=== PATIENT | male | born 1945 | race Caucasian/White ===

== ENCOUNTER 2019-03-07 16:22 | Outpatient (REF) | payer MEDICARE, SELFPAY ==
[2019-03-07 19:29] LABS: ALT 41 U/L (16-63); Anion Gap 11.6 mmol/L (3-11); BUN 20 mg/dL (7-18); CO2 27.4 mmol/L (21.0-32.0); CREATININE 1.04 mg/dL (0.70-1.30); Calcium 8.9 mg/dL (8.5-10.1); Chloride 105 mmol/L (98-107); Glucose 158 mg/dL (74-106); LDL CHOLESTEROL 89 mg/dL (<100); Potassium 3.7 mmol/L (3.5-5.1); Sodium 144 mmol/L (136-145)
== END 2019-03-07 16:42 ==
LOC: NCHCN 16:22
PROVIDERS: PCP Internal Medicine; Visit Provider Internal Medicine
DX: I10 Essential (primary) hypertension (principal); N40.0 Benign prostatic hyperplasia without lower urinary tract symptoms; E66.3 Overweight
CPT/HCPCS: 80048; 83721; 84460

== ENCOUNTER 2019-03-29 08:55 | Outpatient (REF) | payer MEDICARE, SELFPAY ==
[2019-03-29 19:04] LABS: Glucose 110 mg/dL (74-106)
[2019-03-29 19:18] LABS: Hemoglobin A1C 5.1 % (3.8-5.6)
== END 2019-03-29 09:15 ==
LOC: NCHCN 08:55
PROVIDERS: PCP Internal Medicine; Visit Provider Internal Medicine
DX: R73.9 Hyperglycemia, unspecified (principal)
CPT/HCPCS: 82947; 83036

== ENCOUNTER 2020-04-16 16:35 | Outpatient (REF) | payer OTHER, SELFPAY ==
[2020-04-16 19:08] LABS: ALT 34 U/L (16-63); Anion Gap 6.1 mmol/L (3-11); BUN 21 mg/dL (7-18); CO2 28.9 mmol/L (21.0-32.0); Calcium 8.9 mg/dL (8.5-10.1); Chloride 105 mmol/L (98-107); Glucose 134 mg/dL (74-106); LDL CHOLESTEROL 86 mg/dL (<100); Potassium 3.8 mmol/L (3.5-5.1); Sodium 140 mmol/L (136-145)
== END 2020-04-16 16:36 | disposition home or self-care (01) ==
LOC: NCHCN 16:35
PROVIDERS: PCP Internal Medicine; Visit Provider Internal Medicine
DX: I10 Essential (primary) hypertension (principal); E78.5 Hyperlipidemia, unspecified
CPT/HCPCS: 80048; 83721; 84460

== ENCOUNTER 2020-12-27 16:23 | Outpatient (REF) | payer MEDICARE, SELFPAY ==
[2020-12-29 14:16] LABS: COVID-19 RT-PCR UVMMC Result Positive (Negative)
== END 2020-12-27 16:24 | disposition home or self-care (01) ==
LOC: NCHCN 16:23
PROVIDERS: PCP Internal Medicine; Visit Provider Internal Medicine
DX: Z20.822 Contact with and (suspected) exposure to COVID-19 (principal); J06.9 Acute upper respiratory infection, unspecified
CPT/HCPCS: U0003

== ENCOUNTER 2021-10-16 17:12 | Outpatient (REF) | payer MEDICARE, SELFPAY ==
[2021-10-16 21:05] LABS: HCT 33.8 % (40.0-50.0); HGB 11.3 g/dL (13.5-17.5); MCH 28.1 pg (27.0-33.0); MCHC 33.4 % (32.0-36.0); MCV 84 fL (80-95); MPV 10.8 fL (8.0-11.0); Platelet Count 202 10^3/uL (130-400); RBC 4.02 10^6/uL (4.36-5.78); RDW 16.7 % (11.8-14.1); RDW-SD 50.9 fL; WBC 5.81 10^3/uL (4.4-10.8)
[2021-10-16 21:24] LABS: Anion Gap 7.2 mmol/L (3-11); BUN 16 mg/dL (7-18); CO2 27.8 mmol/L (21.0-32.0); CREATININE 0.9 mg/dL (0.70-1.30); Calcium 8.6 mg/dL (8.5-10.1); Calculated LDL 72 mg/dL (<100); Chloride 106 mmol/L (98-107); Cholesterol 147 mg/dL (<200); Glucose 116 mg/dL (74-106); HDL Cholesterol 38 mg/dL (40-60); Potassium 4.1 mmol/L (3.5-5.1); Sodium 141 mmol/L (136-145); TSH 3.03 uIU/mL (0.36-3.74); Triglyceride 187 mg/dL (<150)
== END 2021-10-16 17:13 | disposition home or self-care (01) ==
LOC: NCHCN 17:12
PROVIDERS: PCP Internal Medicine; Visit Provider Internal Medicine
DX: I10 Essential (primary) hypertension (principal); R53.83 Other fatigue; E78.5 Hyperlipidemia, unspecified
CPT/HCPCS: 80048; 80061; 85027; 84443

== ENCOUNTER 2021-10-18 17:56 | Outpatient (REF) | payer MEDICARE, SELFPAY ==
[2021-10-18 19:54] LABS: Iron 105 ug/dL (65-175); Total Iron Binding Capacity 242 ug/dL (250-450); Transferrin Sat 43 % (20-55)
[2021-10-18 20:26] LABS: Ferritin 516 ng/mL (26-388); Folate 16.1 ng/mL (8.6-20.0); Vitamin B12 559 pg/mL (193-986)
== END 2021-10-18 17:57 | disposition home or self-care (01) ==
LOC: NCHCN 17:56
PROVIDERS: PCP Internal Medicine; Visit Provider Internal Medicine
DX: D64.9 Anemia, unspecified (principal)
CPT/HCPCS: 82607; 82728; 82746; 83540; 83550; 85045

== ENCOUNTER 2021-12-24 16:29 | Outpatient (REF) | payer MEDICARE, SELFPAY ==
[2021-12-24 18:34] LABS: Reticulocyte 2.7 % (0.5-2.4)
[2021-12-24 22:05] LABS: Ferritin 525 ng/mL (26-388); Folate 14.5 ng/mL (8.6-20.0); Iron 55 ug/dL (65-175); Vitamin B12 522 pg/mL (193-986)
[2021-12-25 13:12] LABS: HCT 31.4 % (40.0-50.0); HGB 9.9 g/dL (13.5-17.5); MCH 28.4 pg (27.0-33.0); MCHC 31.5 % (32.0-36.0); MCV 90 fL (80-95); MPV 12.6 fL (8.0-11.0); Platelet Count 164 10^3/uL (130-400); RBC 3.49 10^6/uL (4.36-5.78); RDW 17.6 % (11.8-14.1); RDW-SD 57.4 fL; WBC 4.71 10^3/uL (4.4-10.8)
== END 2021-12-24 16:30 | disposition home or self-care (01) ==
LOC: NCHCN 16:29
PROVIDERS: PCP Internal Medicine; Visit Provider Internal Medicine
DX: D64.9 Anemia, unspecified (principal)
CPT/HCPCS: 85027; 82607; 82728; 82746; 83540; 85045

== ENCOUNTER 2021-12-27 15:13 | Outpatient (REF) | payer MEDICARE, SELFPAY ==
[2021-12-27 19:01] LABS: ESR 21 mm/hr (0-20)
[2021-12-27 19:10] LABS: C-Reactive Protein 3.14 mg/dL (0.0-0.3)
== END 2021-12-27 15:14 | disposition home or self-care (01) ==
LOC: NCHCN 15:13
PROVIDERS: PCP Internal Medicine; Visit Provider Internal Medicine
DX: D64.9 Anemia, unspecified (principal); M79.18 Myalgia, other site
CPT/HCPCS: 85652; 86140

== ENCOUNTER 2022-02-20 15:23 | Outpatient (REF) | payer MEDICARE, SELFPAY ==
[2022-02-20 20:37] LABS: HCT 29.6 % (40.0-50.0); HGB 9.3 g/dL (13.5-17.5); MCH 27.2 pg (27.0-33.0); MCHC 31.4 % (32.0-36.0); MCV 87 fL (80-95); MPV 10.3 fL (8.0-11.0); Platelet Count 125 10^3/uL (130-400); RBC 3.42 10^6/uL (4.36-5.78); RDW 18.5 % (11.8-14.1); RDW-SD 57.9 fL; WBC 6.33 10^3/uL (4.4-10.8)
[2022-02-20 20:47] LABS: C-Reactive Protein 2.36 mg/dL (0.0-0.3)
[2022-02-20 21:33] LABS: Absolute Basophil Count 0.13 10^3/uL (0.0-0.2); Absolute Lymphocyte Count 0.38 10^3/uL (1.2-3.4); Absolute Monocyte Count 0.44 10^3/uL (0.1-0.8); Absolute Neutrophil Count 5.25 10^3/uL (1.2-6.7); Atypical Lymphocytes % 2; Bands % 1; Metamyelocytes % 2
[2022-02-20 21:34] LABS: Diff Comment Manual Differential; Ovalocytes 2+; Tear Drop Cells 2+
== END 2022-02-20 15:24 | disposition home or self-care (01) ==
LOC: NCHCN 15:23
PROVIDERS: PCP Internal Medicine; Visit Provider Internal Medicine
DX: M35.3 Polymyalgia rheumatica (principal)
CPT/HCPCS: 85025; 86140

== ENCOUNTER → 2022-04-25 13:21 | Outpatient (BNVA) | payer MEDICARE, SELFPAY | PROVIDERS: PCP Internal Medicine; Referring Provider Internal Medicine; Visit Provider Surgery | DX: D50.9 Iron deficiency anemia, unspecified (principal); K58.9 Irritable bowel syndrome, unspecified; I10 Essential (primary) hypertension; M35.3 Polymyalgia rheumatica; R53.83 Other fatigue | CPT/HCPCS: 99202; 99203 ==

== ENCOUNTER 2022-06-25 14:12 | Outpatient (REF) | payer MEDICARE, SELFPAY ==
[2022-06-25 21:11] LABS: ESR 21 mm/hr (0-20)
[2022-06-25 21:13] LABS: HCT 30.2 % (40.0-50.0); HGB 9.7 g/dL (13.5-17.5); MCH 27.1 pg (27.0-33.0); MCHC 32.1 % (32.0-36.0); MCV 84 fL (80-95); Platelet Count 121 10^3/uL (130-400); RBC 3.58 10^6/uL (4.36-5.78); RDW-SD 56.5 fL; Reticulocyte 3.1 % (0.5-2.4); WBC 6.24 10^3/uL (4.4-10.8)
[2022-06-25 21:53] LABS: Iron 53 ug/dL (65-175); Total Iron Binding Capacity 216 ug/dL (250-450); Transferrin Sat 25 % (20-55)
[2022-06-25 22:03] LABS: Ferritin 515 ng/mL (26-388)
[2022-06-25 22:15] LABS: RDW 18.5 % (11.8-14.1)
== END 2022-06-25 14:13 | disposition home or self-care (01) ==
LOC: NCHCN 14:12
PROVIDERS: PCP Internal Medicine; Visit Provider Internal Medicine
DX: D64.9 Anemia, unspecified (principal); M35.3 Polymyalgia rheumatica
CPT/HCPCS: 85027; 85652; 82728; 83540; 83550; 85045; 86140

== ENCOUNTER 2022-11-04 13:54 | Outpatient (REF) | payer MEDICARE, SELFPAY ==
[2022-11-04 19:07] LABS: HCT 29.3 % (40.0-50.0); HGB 9.5 g/dL (13.5-17.5); MCH 26.7 pg (27.0-33.0); MCHC 32.4 % (32.0-36.0); MCV 82 fL (80-95); RBC 3.56 10^6/uL (4.36-5.78); RDW 19.3 % (11.8-14.1); RDW-SD 58.1 fL; WBC 5.47 10^3/uL (4.4-10.8)
[2022-11-04 19:43] LABS: ESR 13 mm/hr (0-20)
[2022-11-04 19:48] LABS: Iron 110 ug/dL (65-175); Total Iron Binding Capacity 233 ug/dL (250-450); Transferrin Sat 47 % (20-55)
[2022-11-04 20:18] LABS: Absolute Eosinophil Count 0.05 10^3/uL (0.0-0.7); Absolute Lymphocyte Count 0.98 10^3/uL (1.2-3.4); Absolute Monocyte Count 0.44 10^3/uL (0.1-0.8); Absolute Neutrophil Count 3.61 10^3/uL (1.2-6.7); Bands % 6; Metamyelocytes % 3; Platelet Count 77 10^3/uL (130-400)
[2022-11-04 20:19] LABS: Anisocytosis 2+; Diff Comment Manual Differential; Myelocytes % 4; Poikilocytes 2+
[2022-11-05 12:22] LABS: Reticulocyte 2.7 % (0.5-2.4)
== END 2022-11-04 13:55 | disposition home or self-care (01) ==
LOC: NCHCN 13:54
PROVIDERS: Internal Medicine Hematology & Oncology; PCP Internal Medicine; Visit Provider Internal Medicine
DX: D64.9 Anemia, unspecified (principal); N40.0 Benign prostatic hyperplasia without lower urinary tract symptoms
CPT/HCPCS: 85652; 83540; 83550; 85025; 85045

== ENCOUNTER 2023-03-27 15:07 | Outpatient (CLI) | payer MEDICARE, SELFPAY ==
[2023-03-27 12:09] LABS: Abs Immature Grans 0.34 10^3/uL (0.0-0.06); HCT 28.2 % (40.0-50.0); HGB 9.1 g/dL (13.5-17.5); MCH 25.6 pg (27.0-33.0); MCHC 32.3 % (32.0-36.0); MCV 79 fL (80-95); RBC 3.56 10^6/uL (4.36-5.78); RDW 19.1 % (11.8-14.1); RDW-SD 54.9 fL; WBC 4.18 10^3/uL (4.4-10.8)
[2023-03-27 12:24] LABS: ALT 28 U/L (16-63); AST 20 U/L (15-37); Albumin 3.3 g/dL (3.4-5.0); Alkaline Phosphatase 110 U/L (46-116); Anion Gap 8.4 mmol/L (3-11); BUN 22 mg/dL (7-18); Bilirubin, Total 0.5 mg/dL (0.2-1.0); CO2 26.6 mmol/L (21.0-32.0); CREATININE 1.1 mg/dL (0.70-1.30); Calcium 8.6 mg/dL (8.5-10.1); Chloride 107 mmol/L (98-107); Estimated GFR 68.29 (mL/min/1.73m2); Glucose 102 mg/dL (74-106); Potassium 4.6 mmol/L (3.5-5.1); Sodium 142 mmol/L (136-145); Total Protein 7.5 g/dL (6.4-8.2)
[2023-03-27 12:29] LABS: Bands % 4; Platelet Count 95 10^3/uL (130-400)
[2023-03-27 12:30] LABS: Absolute Lymphocyte Count 1.21 10^3/uL (1.2-3.4); Absolute Monocyte Count 0.25 10^3/uL (0.1-0.8); Absolute Neutrophil Count 2.63 10^3/uL (1.2-6.7); Atypical Lymphocytes % 6; Diff Comment Manual Differential; Myelocytes % 2; RBC Morphology Normal
== END 2023-03-27 15:08 | disposition home or self-care (01) ==
LOC: LBO 15:07
PROVIDERS: PCP Internal Medicine; Visit Provider Nurse Practitioner Adult Health
DX: D75.81 Myelofibrosis (principal)
CPT/HCPCS: 36415; 80053; 85025

== ENCOUNTER 2023-05-07 18:33 | Outpatient (REF) | payer MEDICARE, SELFPAY ==
[2023-05-07 18:49] LABS: Abs Immature Grans 0.43 10^3/uL (0.0-0.06); HCT 26.4 % (40.0-50.0); HGB 8.5 g/dL (13.5-17.5); MCH 25.8 pg (27.0-33.0); MCHC 32.2 % (32.0-36.0); MCV 80 fL (80-95); RBC 3.29 10^6/uL (4.36-5.78); RDW 20.8 % (11.8-14.1); RDW-SD 61.3 fL; WBC 4.91 10^3/uL (4.4-10.8)
[2023-05-07 19:19] LABS: Absolute Lymphocyte Count 1.28 10^3/uL (1.2-3.4); Absolute Monocyte Count 0.59 10^3/uL (0.1-0.8); Absolute Neutrophil Count 2.46 10^3/uL (1.2-6.7); Metamyelocytes % 6; Myelocytes % 4; Platelet Count 56 10^3/uL (130-400)
[2023-05-07 19:20] LABS: Anisocytosis 2+; Diff Comment Manual Differential
[2023-05-07 19:21] LABS: Poikilocytes 2+; Polychromasia Present
[2023-05-08 19:04] LABS: PSA, Diagnostic 3.9 ng/mL (<=6.5)
== END 2023-05-07 18:34 | disposition home or self-care (01) ==
LOC: NCHCN 18:33
PROVIDERS: Internal Medicine Hematology & Oncology; PCP Internal Medicine; Visit Provider Internal Medicine
DX: D75.81 Myelofibrosis (principal); N40.1 Benign prostatic hyperplasia with lower urinary tract symptoms
CPT/HCPCS: 84153; 85025

== ENCOUNTER 2023-06-04 11:35 | Outpatient (CLI) | payer MEDICARE, SELFPAY ==
[2023-06-04 11:17] LABS: HCT 26.7 % (40.0-50.0); HGB 8.5 g/dL (13.5-17.5); MCH 26.2 pg (27.0-33.0); MCHC 31.8 % (32.0-36.0); MCV 82 fL (80-95); RBC 3.24 10^6/uL (4.36-5.78); RDW 22.1 % (11.8-14.1); WBC 5.14 10^3/uL (4.4-10.8)
[2023-06-04 11:44] LABS: Absolute Basophil Count 0.05 10^3/uL (0.0-0.2); Absolute Lymphocyte Count 1.64 10^3/uL (1.2-3.4); Absolute Monocyte Count 0.51 10^3/uL (0.1-0.8); Absolute Neutrophil Count 2.93 10^3/uL (1.2-6.7); Anisocytosis 2+; Atypical Lymphocytes % 1; Bands % 5; Diff Comment Manual Differential; Platelet Count 75 10^3/uL (130-400)
[2023-06-04 11:45] LABS: Poikilocytes 2+
== END 2023-06-04 11:36 | disposition home or self-care (01) ==
LOC: LBO 11:36
PROVIDERS: PCP Internal Medicine; Visit Provider Internal Medicine Hematology & Oncology
DX: D75.81 Myelofibrosis (principal); R71.8 Other abnormality of red blood cells
CPT/HCPCS: 36415; 85025

== ENCOUNTER → 2023-07-06 08:50 | Outpatient (BNVA) | payer MEDICARE, SELFPAY | PROVIDERS: PCP Internal Medicine; Referring Provider Internal Medicine; Visit Provider Nurse Practitioner Gerontology | DX: N40.1 Benign prostatic hyperplasia with lower urinary tract symptoms (principal); N13.8 Other obstructive and reflux uropathy; R33.8 Other retention of urine | CPT/HCPCS: 51798; 81003; 99215 ==

== ENCOUNTER → 2023-07-08 03:22 | Outpatient (CLI) | payer MEDICARE, SELFPAY ==
--- NOTE | 2023-07-08 | DI.CT_ITS ---
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 TECHNIQUE: Imaging Protocol: Axial computed tomography images with coronal and sagittal reformatted images were created and reviewed CONTRAST MATERIAL: Intravenous: Omnipaque 350 Contrast volume:100 ml Oral: yes / COMPARISON: No exams were available for comparison FINDINGS: CHEST: Tracheobronchial tree: Patent. Pulmonary parenchyma: No consolidation or dominant measurable mass. Granuloma left upper lobe. Mild nonspecific opacities medial left lung apex. Pleura: No effusion or pneumothorax. Lymph nodes: Within normal limits. Aorta: Thoracic portion non-dilated. Mild atherosclerotic changes. Heart: Heart size normal. No visible coronary artery calcifications. Trace anterior pericardial e ffusion. Bones: Mild diffusely mottled appearance throughout the bones. Including sclerosis noted in the ster num and vertebral bodies. No discrete lytic lesions.No compression fractures. Soft tissues: Unremarkable. ABDOMEN and PELVIS: Liver: Normal density. No measurable mass. Gallbladder and biliary tract: No evidence of stones or wall thickening. No biliary dilatation. Pancreas: Normal density, no abnormal calcifications or inflammatory process. Spleen: Enlarged, measuring 14 by 8 by 14 cm. No focal lesions Kidneys: Normal size, contour and axis. No radiodense stones. No obstructive uropathy. No suspicious masses seen. Simple bilateral renal cysts. No follow-up recommended. Adrenal glands: No masses seen. Aorta: Abdominal portion non-dilated. Qprv-fs-dshavsae atherosclerotic changes. Lymph nodes: Within normal limits. Soft tissues: Unremarkable. Bladder: Mild wall thickening. Bowel: No obstruction or bowel wall thickening. Peritoneal cavity: No ascites. No focal collection. No mesenteric inflammatory response. Bones: Diffusely sclerotic and mottled appearance to the bones of the spine and pelvis as well as pro ximal femurs. Reproductive organs: Enlarged prostate. IMPRESSION: Diffusely mottled, sclerotic appearing bones, consistent with the history of myelofibrosis. Enlarged spleen, 14 x 8 x 14 cm. No focal splenic lesion. No evidence of adenopathy. No evidence of extramedullary hematopoiesis. RADIATION DOSE DELIVERED: 1,365.14mGy.cm Total DLP DATA REPOSITORY: All CT scans at this facility are submitted to the National Radiology Data Registry (NRDR) Dose Index Registry (DIR) with the [employer] ([employer]). RADIATION OPTIMIZATION: All CT scans at this facility use at least one of these dose optimization te chniques: automated exposure control; mA and/or kV adjustment per patient size (includes targeted exa ms where dose is matched to clinical indication); or iterative reconstruction.
[2023-07-08] MEDS: Barium Sulfate 2% W/V-Berry Smoothie 450 ML BTL PO ×2 (07:59→08:00)
[2023-07-08 08:19] LABS: Abs Immature Grans 0.28 10^3/uL (0.0-0.06); Absolute Basophil Count 0.03 10^3/uL (0.0-0.2); Absolute Eosinophil Count 0.02 10^3/uL (0.0-0.7); Absolute Lymphocyte Count 1.36 10^3/uL (1.2-3.4); Absolute Monocyte Count 0.69 10^3/uL (0.1-0.8); Absolute Neutrophil Count 2.45 10^3/uL (1.2-6.7); Basophils % 0.6 %; Eosinophils % 0.4 %; HGB 9.2 g/dL (13.5-17.5); Immature Grans % 5.8 %; Lymphocytes % 28.2 %; MCHC 32.9 % (32.0-36.0); MCV 85 fL (80-95); Monocytes % 14.3 %; Neutrophils % 50.7 %; Nucleated RBC 2.7 % (0.0-0.3); RBC 3.29 10^6/uL (4.36-5.78); RDW 20.9 % (11.8-14.1); RDW-SD 64.4 fL; WBC 4.83 10^3/uL (4.4-10.8)
[2023-07-08 08:34] LABS: ALT 31 U/L (16-63); AST 13 U/L (15-37); Albumin 4.3 g/dL (3.4-5.0); Alkaline Phosphatase 83 U/L (46-116); Anion Gap 8.9 mmol/L (3-11); Anisocytosis 2+; BUN 18 mg/dL (7-18); Bilirubin, Total 0.9 mg/dL (0.2-1.0); CO2 29.1 mmol/L (21.0-32.0); CREATININE 1.2 mg/dL (0.70-1.30); Calcium 9.1 mg/dL (8.5-10.1); Chloride 108 mmol/L (98-107); Diff Comment Diff Reviewed; Estimated GFR 61.52 (mL/min/1.73m2); Glucose 111 mg/dL (74-106); Platelet Count 74 10^3/uL (130-400); Polychromasia Present; Potassium 4.6 mmol/L (3.5-5.1); Sodium 146 mmol/L (136-145); Total Protein 7.3 g/dL (6.4-8.2)
[2023-07-08 08:35] LABS: Poikilocytes 2+
[2023-07-08] MEDS: Omnipaque 350 MG/ML 100 ML BTL IJ (10:01)
[2023-07-08] MEDS: Normal Saline - Diluent 50 ML VIAL IJ (10:02)
== END ==
PROVIDERS: Nurse Practitioner Adult Health; PCP Internal Medicine; Visit Provider Internal Medicine Hematology & Oncology
DX: D75.81 Myelofibrosis (principal); D73.89 Other diseases of spleen
CPT/HCPCS: 74177; 80053; 71260; 85025; J3490

== ENCOUNTER 2023-08-06 14:49 | Outpatient (CLI) | payer MEDICARE, SELFPAY ==
[2023-08-06 13:32] LABS: HCT 27.1 % (40.0-50.0); HGB 8.8 g/dL (13.5-17.5); MCH 27.3 pg (27.0-33.0); MCHC 32.5 % (32.0-36.0); MCV 84 fL (80-95); RBC 3.22 10^6/uL (4.36-5.78); RDW-SD 62.3 fL; WBC 4.41 10^3/uL (4.4-10.8)
[2023-08-06 13:54] LABS: Absolute Lymphocyte Count 1.15 10^3/uL (1.2-3.4); Absolute Monocyte Count 0.22 10^3/uL (0.1-0.8); Absolute Neutrophil Count 2.91 10^3/uL (1.2-6.7); Atypical Lymphocytes % 4 %; Bands % 4 %; Platelet Count 84 10^3/uL (130-400)
[2023-08-06 13:55] LABS: Diff Comment Manual Differential; Metamyelocytes % 3; Tear Drop Cells 2+
== END 2023-08-06 14:50 | disposition home or self-care (01) ==
LOC: LBO 14:49
PROVIDERS: PCP Internal Medicine; Visit Provider Internal Medicine Hematology & Oncology
DX: D75.81 Myelofibrosis (principal)
CPT/HCPCS: 36415; 85025

== ENCOUNTER → 2023-08-10 14:35 | Outpatient (BNVA) | payer MEDICARE, SELFPAY | PROVIDERS: PCP Internal Medicine; Referring Provider Internal Medicine; Visit Provider Nurse Practitioner Gerontology | DX: N40.1 Benign prostatic hyperplasia with lower urinary tract symptoms (principal); R33.8 Other retention of urine; N13.8 Other obstructive and reflux uropathy | CPT/HCPCS: 99442 ==

== ENCOUNTER 2023-09-25 13:55 | Outpatient (CLI) | payer MEDICARE, SELFPAY ==
[2023-09-25 14:05] LABS: Abs Immature Grans 0.34 10^3/uL (0.0-0.06); HCT 25.7 % (40.0-50.0); HGB 8.4 g/dL (13.5-17.5); MCH 27.8 pg (27.0-33.0); MCHC 32.7 % (32.0-36.0); MCV 85 fL (80-95); Nucleated RBC 1.2 % (0.0-0.3); RBC 3.02 10^6/uL (4.36-5.78); RDW 19.8 % (11.8-14.1); RDW-SD 61.4 fL
[2023-09-25 14:23] LABS: ALT 29 U/L (16-63); AST 12 U/L (15-37); Albumin 3.8 g/dL (3.4-5.0); Alkaline Phosphatase 73 U/L (46-116); Anion Gap 7.9 mmol/L (3-11); BUN 21 mg/dL (7-18); Bilirubin, Total 0.83 mg/dL (0.2-1.0); CO2 28.1 mmol/L (21.0-32.0); CREATININE 1.4 mg/dL (0.70-1.30); Calcium 8.8 mg/dL (8.5-10.1); Chloride 106 mmol/L (98-107); Estimated GFR 51.13 (mL/min/1.73m2); Glucose 121 mg/dL (74-106); Potassium 4.1 mmol/L (3.5-5.1); Sodium 142 mmol/L (136-145); Total Protein 6.7 g/dL (6.4-8.2)
[2023-09-25 14:27] LABS: Absolute Eosinophil Count 0.05 10^3/uL (0.0-0.7); Absolute Lymphocyte Count 1.38 10^3/uL (1.2-3.4); Absolute Monocyte Count 0.36 10^3/uL (0.1-0.8); Absolute Neutrophil Count 3.01 10^3/uL (1.2-6.7); Bands % 2 %; Metamyelocytes % 3; Myelocytes % 1
[2023-09-25 14:28] LABS: Diff Comment Manual Differential; Microcytosis 1+; Platelet Count 88 10^3/uL (130-400); Polychromasia Present
[2023-09-25 14:29] LABS: Poikilocytes 2+
== END 2023-09-25 13:56 | disposition home or self-care (01) ==
LOC: LBO 13:56
PROVIDERS: PCP Internal Medicine; Visit Provider Internal Medicine Hematology & Oncology
DX: D75.81 Myelofibrosis (principal)
CPT/HCPCS: 36415; 80053; 85025

== ENCOUNTER 2023-11-05 13:50 | Outpatient (CLI) | payer MEDICARE, SELFPAY ==
[2023-11-05 12:59] LABS: Abs Immature Grans 0.32 10^3/uL (0.0-0.06); HGB 9.1 g/dL (13.5-17.5); MCH 27.7 pg (27.0-33.0); MCHC 32.5 % (32.0-36.0); MCV 85 fL (80-95); RBC 3.28 10^6/uL (4.36-5.78); RDW 19.7 % (11.8-14.1); RDW-SD 61.1 fL; WBC 5.18 10^3/uL (4.4-10.8)
[2023-11-05 13:21] LABS: Absolute Lymphocyte Count 1.55 10^3/uL (1.2-3.4); Platelet Count 99 10^3/uL (130-400)
[2023-11-05 13:22] LABS: Absolute Monocyte Count 0.41 10^3/uL (0.1-0.8); Diff Comment Manual Differential; Metamyelocytes % 5; Myelocytes % 1; Polychromasia Present
== END 2023-11-05 13:51 | disposition home or self-care (01) ==
LOC: LBO 13:50
PROVIDERS: PCP Internal Medicine; Visit Provider Internal Medicine Hematology & Oncology
DX: D75.81 Myelofibrosis (principal)
CPT/HCPCS: 36415; 85025

== ENCOUNTER 2024-02-03 02:40 | Outpatient (CLI) | payer MEDICARE, SELFPAY ==
[2024-02-03 12:22] LABS: Abs Immature Grans 0.27 10^3/uL (0.0-0.06); Absolute Basophil Count 0.04 10^3/uL (0.0-0.2); Absolute Eosinophil Count 0.02 10^3/uL (0.0-0.7); Absolute Lymphocyte Count 1.13 10^3/uL (1.2-3.4); Absolute Monocyte Count 0.62 10^3/uL (0.1-0.8); Basophils % 0.7 %; Eosinophils % 0.4 %; HCT 29.3 % (40.0-50.0); HGB 9.6 g/dL (13.5-17.5); MCH 27.8 pg (27.0-33.0); MCHC 32.8 % (32.0-36.0); MCV 85 fL (80-95); Monocytes % 11.5 %; Neutrophils % 61.4 %; Nucleated RBC 1.1 % (0.0-0.3); RBC 3.45 10^6/uL (4.36-5.78); RDW 19.1 % (11.8-14.1); RDW-SD 59.7 fL; WBC 5.38 10^3/uL (4.4-10.8)
[2024-02-03 12:34] LABS: Diff Comment Diff Reviewed; Platelet Count 97 10^3/uL (130-400)
[2024-02-03 12:35] LABS: Poikilocytes 2+
[2024-02-03 12:45] LABS: ALT 33 U/L (16-63); AST 15 U/L (15-37); Alkaline Phosphatase 66 U/L (46-116); Anion Gap 7.9 mmol/L (3-11); BUN 24 mg/dL (7-18); Bilirubin, Total 0.68 mg/dL (0.2-1.0); CO2 29.1 mmol/L (21.0-32.0); CREATININE 1.3 mg/dL (0.70-1.30); Calcium 8.8 mg/dL (8.5-10.1); Chloride 108 mmol/L (98-107); Estimated GFR 55.88 (mL/min/1.73m2); Glucose 123 mg/dL (74-106); Potassium 4.2 mmol/L (3.5-5.1); Sodium 145 mmol/L (136-145); Total Protein 7.3 g/dL (6.4-8.2)
== END 2024-02-03 02:41 | disposition home or self-care (01) ==
LOC: LBO 02:40
PROVIDERS: Nurse Practitioner Family; PCP Internal Medicine; Visit Provider Internal Medicine Hematology & Oncology
DX: D75.81 Myelofibrosis (principal); D61.818 Other pancytopenia
CPT/HCPCS: 36415; 80053; 85025

== ENCOUNTER 2024-05-04 13:44 | Outpatient (CLI) | payer MEDICARE, SELFPAY ==
[2024-05-04 13:36] LABS: HCT 30.1 % (40.0-50.0); HGB 9.9 g/dL (13.5-17.5); MCHC 32.9 % (32.0-36.0); MCV 85 fL (80-95); Platelet Count 109 10^3/uL (130-400); RBC 3.54 10^6/uL (4.36-5.78); RDW 18.5 % (11.8-14.1); RDW-SD 56.7 fL; WBC 5.22 10^3/uL (4.4-10.8)
[2024-05-04 13:51] LABS: ALT 38 U/L (16-63); AST 17 U/L (15-37); Alkaline Phosphatase 70 U/L (46-116); Anion Gap 4.3 mmol/L (3-11); BUN 24 mg/dL (7-18); Bilirubin, Total 0.68 mg/dL (0.2-1.0); CO2 32.7 mmol/L (21.0-32.0); CREATININE 1.4 mg/dL (0.70-1.30); Calcium 9.4 mg/dL (8.5-10.1); Chloride 108 mmol/L (98-107); Estimated GFR 50.81 (mL/min/1.73m2); Glucose 127 mg/dL (74-106); Potassium 4.3 mmol/L (3.5-5.1); Sodium 145 mmol/L (136-145); Total Protein 7.3 g/dL (6.4-8.2)
[2024-05-04 14:03] LABS: Absolute Basophil Count 0.05 10^3/uL (0.0-0.2); Absolute Eosinophil Count 0.05 10^3/uL (0.0-0.7); Absolute Monocyte Count 0.31 10^3/uL (0.1-0.8); Absolute Neutrophil Count 3.55 10^3/uL (1.2-6.7); Bands % 2 %; Diff Comment Manual Differential; Metamyelocytes % 1; RBC Morphology Normal
== END 2024-05-04 13:45 | disposition home or self-care (01) ==
LOC: LBO 13:45
PROVIDERS: PCP Internal Medicine; Visit Provider Internal Medicine Hematology & Oncology
DX: D75.81 Myelofibrosis (principal)
CPT/HCPCS: 36415; 80053; 85025

== ENCOUNTER → 2024-05-24 08:41 | Outpatient (BNVA) | payer MEDICARE, SELFPAY | PROVIDERS: PCP Internal Medicine; Visit Provider Nurse Practitioner Gerontology | DX: N13.8 Other obstructive and reflux uropathy (principal); N40.1 Benign prostatic hyperplasia with lower urinary tract symptoms; R32 Unspecified urinary incontinence; R33.9 Retention of urine, unspecified; R39.9 Unspecified symptoms and signs involving the genitourinary system | CPT/HCPCS: 51798; 99213 ==

== ENCOUNTER 2024-07-05 11:44 | Outpatient (REF) | payer MEDICARE, SELFPAY ==
[2024-07-05 19:08] LABS: Calculated LDL 96 mg/dL (<100); Cholesterol 167 mg/dL (<200); HDL Cholesterol 56 mg/dL (>or=40); Triglyceride 75 mg/dL (<150)
== END 2024-07-05 11:45 | disposition home or self-care (01) ==
LOC: NCHCN 11:44
PROVIDERS: PCP Internal Medicine; Visit Provider Internal Medicine
DX: E78.2 Mixed hyperlipidemia (principal)
CPT/HCPCS: 80061

== ENCOUNTER 2024-08-10 05:07 | Outpatient (CLI) | payer MEDICARE, SELFPAY ==
[2024-08-10 09:15] LABS: Abs Immature Grans 0.26 10^3/uL (0.0-0.06); Absolute Basophil Count 0.03 10^3/uL (0.0-0.2); Absolute Eosinophil Count 0.07 10^3/uL (0.0-0.7); Absolute Lymphocyte Count 1.49 10^3/uL (1.2-3.4); Absolute Monocyte Count 0.53 10^3/uL (0.1-0.8); Absolute Neutrophil Count 3.02 10^3/uL (1.2-6.7); Basophils % 0.6 %; Eosinophils % 1.3 %; HCT 30.2 % (40.0-50.0); HGB 9.9 g/dL (13.5-17.5); Immature Grans % 4.8 %; Lymphocytes % 27.6 %; MCH 28.6 pg (27.0-33.0); MCHC 32.8 % (32.0-36.0); MCV 87 fL (80-95); MPV 10.2 fL (8.0-11.0); Monocytes % 9.8 %; Neutrophils % 55.9 %; Nucleated RBC 0.4 % (0.0-0.3); Platelet Count 124 10^3/uL (130-400); RBC 3.46 10^6/uL (4.36-5.78); RDW 17.7 % (11.8-14.1); RDW-SD 56.3 fL
[2024-08-10 09:38] LABS: ALT 44 U/L (16-63); AST 16 U/L (15-37); Albumin 4.1 g/dL (3.4-5.0); Alkaline Phosphatase 74 U/L (46-116); Anion Gap 7.1 mmol/L (3-11); BUN 26 mg/dL (7-18); Bilirubin, Total 0.7 mg/dL (0.2-1.0); CO2 31.9 mmol/L (21.0-32.0); CREATININE 1.5 mg/dL (0.70-1.30); Calcium 9.2 mg/dL (8.5-10.1); Chloride 105 mmol/L (98-107); Estimated GFR 46.77 (mL/min/1.73m2); Glucose 138 mg/dL (74-106); Potassium 4.3 mmol/L (3.5-5.1); Sodium 144 mmol/L (136-145); Total Protein 7.1 g/dL (6.4-8.2)
== END 2024-08-10 05:08 | disposition home or self-care (01) ==
LOC: LBO 05:07
PROVIDERS: PCP Internal Medicine; Visit Provider Internal Medicine Hematology & Oncology
DX: D75.81 Myelofibrosis (principal)
CPT/HCPCS: 36415; 80053; 85025

== ENCOUNTER 2024-11-09 04:29 | Outpatient (CLI) | payer MEDICARE, SELFPAY ==
[2024-11-09 12:12] LABS: HCT 29.7 % (40.0-50.0); HGB 9.8 g/dL (13.5-17.5); MCH 28.4 pg (27.0-33.0); MCHC 33.0 % (32.0-36.0); MCV 86 fL (80-95); MPV 9.6 fL (8.0-11.0); Platelet Count 119 10^3/uL (130-400); RBC 3.45 10^6/uL (4.36-5.78); RDW 17.4 % (11.8-14.1); RDW-SD 54.4 fL; WBC 6.49 10^3/uL (4.4-10.8)
[2024-11-09 12:24] LABS: Abs Immature Grans 0.00 10^3/uL (0.0-0.06); Immature Grans % 0.0 %
[2024-11-09 12:25] LABS: Poikilocytes 1+
[2024-11-09 12:26] LABS: ALT 39 U/L (16-63); AST 12 U/L (15-37); Albumin 3.9 g/dL (3.4-5.0); Alkaline Phosphatase 57 U/L (46-116); Anion Gap 5.5 mmol/L (3-11); BUN 21 mg/dL (7-18); Bilirubin, Total 0.8 mg/dL (0.2-1.0); CO2 31.5 mmol/L (21.0-32.0); Calcium 9.2 mg/dL (8.5-10.1); Chloride 106 mmol/L (98-107); Estimated GFR 61.13 (mL/min/1.73m2); Glucose 117 mg/dL (74-106); Potassium 4.4 mmol/L (3.5-5.1); Sodium 143 mmol/L (136-145); Total Protein 6.8 g/dL (6.4-8.2)
== END 2024-11-09 04:30 | disposition home or self-care (01) ==
PROVIDERS: PCP Internal Medicine; Visit Provider Internal Medicine Hematology & Oncology
DX: D75.81 Myelofibrosis (principal)
CPT/HCPCS: 36415; 80053; 85025

== ENCOUNTER 2025-01-30 20:58 | Outpatient (REF) | payer MEDICARE, SELFPAY ==
--- NOTE | 2025-01-30 16:40 | SKI_PTH ---
PATIENT: Amadou Butts LOC: [facility]#:[id number] AGE/SX: 79/M ROOM: RE01/30/[address]: Real Flores : 1945 BED: DIS: 01/30/2025 SPEC #: [id number] RECD: 01/31/25 12:46 STATUS: YAJAIRA MULTANI #: [id number] ZOE: 01/30/25 16:[address]: Real Flores DEPT: Surgical Specimen RECD BY: Marnie Miller Tissues: 1 - SKIN CYST/TAG/DEBRIDEMENT Procedures: SKIN BIOPSY LEVEL 3 Comments: [id number]
== END 2025-01-30 20:59 | disposition home or self-care (01) ==
LOC: NCHCN 20:58
PROVIDERS: PCP Internal Medicine; Visit Provider Internal Medicine
DX: Z87.898 Personal history of other specified conditions (principal); B07.9 Viral wart, unspecified
CPT/HCPCS: 84154; 88304

== ENCOUNTER 2025-02-15 09:08 | Outpatient (CLI) | payer MEDICARE, SELFPAY ==
[2025-02-15 09:37] LABS: Abs Immature Grans 0.43 10^3/uL (0.0-0.06); HCT 33.4 % (40.0-50.0); HGB 11.2 g/dL (13.5-17.5); MCH 28.9 pg (27.0-33.0); MCHC 33.5 % (32.0-36.0); MCV 86 fL (80-95); MPV 10.0 fL (8.0-11.0); Platelet Count 199 10^3/uL (130-400); RBC 3.88 10^6/uL (4.36-5.78); RDW 16.5 % (11.8-14.1); RDW-SD 50.7 fL; WBC 6.63 10^3/uL (4.4-10.8)
[2025-02-15 09:59] LABS: RBC Morphology Normal
[2025-02-15 10:01] LABS: ALT 23 U/L (10-49); AST 17 U/L (<34); Albumin 4.3 g/dL (3.2-5.0); Alkaline Phosphatase 66 U/L (46-116); Anion Gap 4.9 mmol/L (3-11); BUN 18 mg/dL (9-23); Bilirubin, Total 0.9 mg/dL (0.2-1.2); CO2 31.1 mmol/L (20.0-31.0); Calcium 9.6 mg/dL (8.3-10.6); Chloride 107 mmol/L (98-107); Glucose 104 mg/dL (74-106); Potassium 4.3 mmol/L (3.5-5.1); Sodium 143 mmol/L (136-145); Total Protein 7.1 g/dL (5.7-8.2)
== END 2025-02-15 09:09 | disposition home or self-care (01) ==
LOC: LBO 09:08
PROVIDERS: PCP Internal Medicine; Visit Provider Internal Medicine Hematology & Oncology
DX: D61.818 Other pancytopenia (principal); D75.81 Myelofibrosis
CPT/HCPCS: 36415; 80053; 85025